=== PATIENT | male | born 1960 | race Caucasian/White ===

== ENCOUNTER 2017-05-21 16:05 | Emergency (ER) | payer BC ==
[~2017-05-21] VITALS: Ht 177.8 cm; Wt 97.0 kg
[2017-05-21 16:08] VITALS: Ht 177.8 cm; Wt 97.0 kg
[2017-05-21] MEDS ORDERED: CEPH-443 PO (16:47)
[2017-05-21] MEDS ORDERED: SULF1TAB31 PO (16:47)
[2017-05-21] MEDS ORDERED: DOCU-144 PO (16:47)
[2017-05-21] MEDS ORDERED: HYDR-906 PO (16:47)
--- NOTE | 2017-05-21 16:54 | ERD ---
ER Documentation Chief Complaint Date/Time DATE: 05/21/17 TIME: 16:52 Chief Complaint RECTAL BLEED H/O HEMORRHOIDS HPI 56-year-old male presents with pain in his rectum secondary to a hemorrhoid. Is been going on for about a week and he saw his primary care doctor who gave him cream and suppositories but he continues to be painful. He states that the pain was pressure-like and today he felt like it popped and there was some bleeding and now his pain is subsiding but he still does have pain. No difficulty with bowel movements. No fever. No abdominal pain. He is concerned that it may get infected. ROS All systems reviewed and are negative except as per history of present illness. Medications Home Meds Active Scripts Hydrocodone/Acetaminophen (Woden 5-325 Tablet) 1 Each Tablet, 1 TAB PO Q6H Y for PAIN, #20 TAB Prov:NICHELLE BEAVERS PA-C 05/21/17 Cephalexin* (Keflex*) 500 Mg Capsule, 500 MG PO QID for 7 Days, CAP Prov:NICHELLE BEAVERS PA-C 05/21/17 Docusate Sodium* (Colace*) 100 Mg Capsule, 100 MG PO TID, #30 CAP Prov:NICHELLE BEAVERS PA-C 05/21/17 Sulfamethoxazole/Trimethoprim* (Bactrim Ds* Tablet) 1 Each Tablet, 1 TAB PO BID , #14 TAB Prov:NICHELLE BEAVERS PA-C 05/21/17 Allergies Allergies: Uncoded Allergies: AMPICILLINS (Allergy, Intermediate, 05/21/17) rash PMhx/Soc Medical and Surgical Hx: pt denies Surgical Hx History of Surgery: Yes (low back; eye lasik) Anesthesia Reaction: No Hx Neurological Disorder: No Hx Respiratory Disorders: No Hx Cardiac Disorders: Yes (htn, cholesterol; prostate) Hx Psychiatric Problems: No Hx Miscellaneous Medical Probl: No Hx Alcohol Use: Yes Hx Substance Use: No Hx Tobacco Use: No Smoking Status: Never smoker FmHx Family History: No diabetes Physical Exam Vitals Vital Signs Date Time Temp Pulse Resp B/P Pulse Ox O2 Delivery O2 Flow Rate FiO2 05/21/17 16:08 97.8 82 18 136/88 98 Physical Exam General: well developed, well nourished, alert, nontoxic, no distress Head: normocephalic, atraumatic Respiratory: Clear to auscaultation bilaterally, speaks in full sentences, no use of accesory muscles or labored breathing, no rales, ronchi, or wheezing Cardiovascular: RRR, No murmurs GI: soft, non tender, non distended, negative murphys sign, negative mcburneys point tenderness, no cva tenderness bilaterally, no rebound or guarding Rectal: Nonthrombosed hemorrhoids, no active bleeding Procedures/MDM Patient presents with hemorrhoid pain. Both myself and my supervising physician Dr. Crockett evaluated the patient and he recommended outpatient treatment with antibiotics as well as pain medication. He was given Bactrim, Keflex, Colace, and Woden. Recommended this patient follow up with her primary care doctor within 48 hours or return to the emergency room for any worsening of symptoms. However this time I do believe there is suitable for outpatient management. I answered all their questions and they agreed with the plan and were discharged home. Departure Diagnosis: Primary Impression: Hemorrhoid Condition: Stable Patient Instructions: Hemorrhoids Additional Instructions: Call your primary care doctor TOMORROW for an appointment during the next 1-2 days.See the doctor sooner or return here if your condition worsens before your appointment time. NICHELLE BEAVERS PA-C May 21, 2017 16:54
== END 2017-05-21 16:51 | disposition home or self-care (01) ==
LOC: FTE 16:05
DX: K64.9 Unspecified hemorrhoids (principal)
CPT/HCPCS: 99284